=== PATIENT | male | born 1945 | race Caucasian/White ===

== ENCOUNTER 2020-08-24 16:16 | Inpatient (IN) ==
[2020-08-24] MEDS ORDERED: ACETAMINOPHEN 325 MG TABLET PO PRN (16:28)
[2020-08-24] MEDS: SODIUM CHLORIDE 0.9% 1,000 ML IV SCH (17:59)
[2020-08-24] MEDS: PIPERACILLIN/TAZOBACTAM 3,375 MG in SODIUM CHLORIDE 0.9% 100 ML IV SCH (17:59)
[2020-08-24] MEDS ORDERED: ENOXAPARIN 40 MG/0.4 ML SYRINGE SUBCUT SCH (21:00)
[2020-08-25] MEDS: SODIUM CHLORIDE 0.9% 1,000 ML IV SCH ×3 (01:38→17:38)
[2020-08-25] MEDS: PIPERACILLIN/TAZOBACTAM 3,375 MG in SODIUM CHLORIDE 0.9% 100 ML IV SCH ×3 (02:35→17:39)
[2020-08-25 05:49] LABS: Basophils % 0.1 % (0.0-0.8); Hematocrit 37.2 VOL% (42.0-52.0); Hemoglobin 12.8 GM/DL (14.0-18.0); Immature Granulocytes % 0.6 %; Immature Granulocytes Absolute 0.09 #; Lymphocytes # 0.8 10*3/uL (1.4-4.0); Lymphocytes % 5.1 % (21.2-54.2); Mean Corpuscular HGB Conc 34.4 GM/DL (32-36); Mean Corpuscular Volume 88.8 FL (87-102); Mean Platelet Volume 9.8 FL (9.6-12.0); Monocytes % 7.2 % (1.7-12.7); Platelet Count 126 T/CUMM (130-400); Red Blood Count 4.19 MC/CUMM (3.8-5.5); Red Cell Distribution Width 13.3 % (9.3-17.3); White Blood Count 15.2 T/CUMM (4-12)
[2020-08-25] MEDS: PANTOPRAZOLE 40 MG TABLET PO SCH (08:27)
[2020-08-25] MEDS ORDERED: ROCURONIUM 50 MG/5 ML VIAL IV ONE (13:15)
[2020-08-25] MEDS ORDERED: propofoL 200 MG/20 ML VIAL IV ONE (13:15)
[2020-08-25] MEDS ORDERED: SEVOFLURANE 1 UNIT/15 MINUTE INH ONE ×7 (13:15→15:27)
[2020-08-25] MEDS ORDERED: LIDOCAINE 2% 5 ML VIAL ONE (13:15)
[2020-08-25] MEDS ORDERED: MIDAZOLAM 2 MG/2 ML VIAL ONE (13:19)
[2020-08-25] MEDS ORDERED: fentaNYL 250 MCG/5 ML VIAL ONE (13:19)
[2020-08-25] MEDS ORDERED: SUCCINYLCHOLINE 200 MG/10 ML VIAL ONE (13:20)
[2020-08-25] MEDS ORDERED: PHENYLEPHRINE 1 MG/10 ML SYRINGE IV ONE (13:44)
[2020-08-25] MEDS ORDERED: LACTATED RINGERS 1,000 ML IV ONE ×2 (14:33→15:26)
[2020-08-25] MEDS ORDERED: GLYCOPYRROLATE 0.4 MG/2 ML VIAL ONE (15:09)
[2020-08-25] MEDS ORDERED: NEOSTIGMINE 10 MG/10 ML VIAL ONE (15:10)
[2020-08-25] MEDS ORDERED: DEXAMETHASONE 4 MG/1 ML VIAL ONE (15:10)
[2020-08-25] MEDS ORDERED: LIDOCAINE 1% 5 ML VIAL ONE (15:10)
[2020-08-25] MEDS ORDERED: ROPIVACAINE 0.5% 30 ML VIAL ONE (15:11)
[2020-08-25] MEDS ORDERED: ONDANSETRON 4 MG/2 ML VIAL IV PRN (16:26)
[2020-08-25] MEDS: ONDANSETRON 4 MG/2 ML VIAL IV PRN (16:28)
[2020-08-25] MEDS: HYDROmorphone 2 MG/1 ML VIAL IV PRN ×3 (16:30→21:11)
[2020-08-25 18:09] LABS: Bilirubin,Urine Negative (Negative); Blood, Urine Negative (Negative); Glucose,Urine (UA) Negative (Negative); Ketones,Urine 80 mg/dL (Negative); Mucus,Urine Occasional /LPF (Occasional); Nitrite,Urine Negative (Negative); Protein,Urine 30 MG/DL; RBC,Urine 4 /HPF (0-4); Urine Appearance CLEAR (Clear); Urine Color Yellow (Yellow); Urine Specific Gravity 1.025 (1.001-1.035); Urine Urobilinogen < 2.0 EU/DL (0.2-1.0); WBC,Urine 4 /HPF (0-6)
[2020-08-26] MEDS: PIPERACILLIN/TAZOBACTAM 3,375 MG in SODIUM CHLORIDE 0.9% 100 ML IV SCH ×4 (04:07→17:23)
[2020-08-26] MEDS: SODIUM CHLORIDE 0.9% 1,000 ML IV SCH ×3 (04:24→15:40)
[2020-08-26 05:04] LABS: Calcium 7.6 MG/DL (8.5-10.1); Osmolality,Calculated 284.4 MOS/KG (273-304)
[2020-08-26] MEDS: PANTOPRAZOLE 40 MG TABLET PO SCH (08:39)
[2020-08-26] MEDS: ASPIRIN EC 81 MG TABLET PO SCH (08:39)
[2020-08-26] MEDS: ONDANSETRON 4 MG/2 ML VIAL IV PRN (08:49)
[2020-08-26] MEDS: HYDROmorphone 2 MG/1 ML VIAL IV PRN ×3 (08:50→18:52)
[2020-08-27] MEDS: SODIUM CHLORIDE 0.9% 1,000 ML IV SCH ×3 (01:51→17:05)
[2020-08-27] MEDS: HYDROmorphone 2 MG/1 ML VIAL IV PRN ×3 (01:51→17:08)
[2020-08-27] MEDS: PIPERACILLIN/TAZOBACTAM 3,375 MG in SODIUM CHLORIDE 0.9% 100 ML IV SCH ×3 (01:51→17:08)
[2020-08-27 04:57] LABS: Basophils % 0.1 % (0.0-0.8); Eosinophils % 0.2 % (0.00-10.9); Hematocrit 33.7 VOL% (42.0-52.0); Hemoglobin 11.1 GM/DL (14.0-18.0); Immature Granulocytes % 0.4 %; Immature Granulocytes Absolute 0.05 #; Lymphocytes # 0.8 10*3/uL (1.4-4.0); Lymphocytes % 6.6 % (21.2-54.2); Mean Corpuscular HGB Conc 32.9 GM/DL (32-36); Mean Corpuscular Volume 90.1 FL (87-102); Mean Platelet Volume 10.2 FL (9.6-12.0); Monocytes % 8.6 % (1.7-12.7); Neutrophils % 84.1 % (38.7-73.9); Platelet Count 138 T/CUMM (130-400); Red Blood Count 3.74 MC/CUMM (3.8-5.5); Red Cell Distribution Width 13.3 % (9.3-17.3); White Blood Count 11.6 T/CUMM (4-12)
[2020-08-27 05:26] LABS: Calcium 7.8 MG/DL (8.5-10.1); Osmolality,Calculated 284.3 MOS/KG (273-304); Potassium 3.6 MMOL/L (3.5-5.1)
[2020-08-27] MEDS: PANTOPRAZOLE 40 MG TABLET PO SCH (08:56)
[2020-08-27] MEDS: ONDANSETRON 4 MG/2 ML VIAL IV PRN ×2 (09:36→17:06)
[2020-08-28] MEDS: PIPERACILLIN/TAZOBACTAM 3,375 MG in SODIUM CHLORIDE 0.9% 100 ML IV SCH ×3 (03:19→17:36)
[2020-08-28 05:50] LABS: Basophils % 0.4 % (0.0-0.8); Eosinophils # 0.1 10*3/uL (0.0-0.87); Eosinophils % 1.9 % (0.00-10.9); Hematocrit 30.8 VOL% (42.0-52.0); Hemoglobin 9.9 GM/DL (14.0-18.0); Immature Granulocytes % 0.4 %; Immature Granulocytes Absolute 0.03 #; Lymphocytes # 0.8 10*3/uL (1.4-4.0); Lymphocytes % 11.2 % (21.2-54.2); Mean Corpuscular HGB Conc 32.1 GM/DL (32-36); Mean Corpuscular Volume 90.9 FL (87-102); Mean Platelet Volume 10.2 FL (9.6-12.0); Monocytes % 10.1 % (1.7-12.7); Platelet Count 142 T/CUMM (130-400); Red Blood Count 3.39 MC/CUMM (3.8-5.5); Red Cell Distribution Width 13.5 % (9.3-17.3); White Blood Count 7.4 T/CUMM (4-12)
[2020-08-28 06:19] LABS: Albumin 2.1 G/DL (3.4-5.0); Bilirubin,Total 0.8 MG/DL (0.2-1.0); Calcium 7.9 MG/DL (8.5-10.1); Osmolality,Calculated 282.1 MOS/KG (273-304); Potassium 3.7 MMOL/L (3.5-5.1); Total Protein 5.4 G/DL (6.4-8.3)
[2020-08-28] MEDS: SODIUM CHLORIDE 0.9% 1,000 ML IV SCH ×2 (06:24→18:20)
[2020-08-28] MEDS: PANTOPRAZOLE 40 MG TABLET PO SCH (09:50)
[2020-08-28] MEDS: ASPIRIN EC 81 MG TABLET PO SCH (09:50)
[2020-08-28] MEDS: HYDROmorphone 2 MG/1 ML VIAL IV PRN (17:48)
[2020-08-29] MEDS: PIPERACILLIN/TAZOBACTAM 3,375 MG in SODIUM CHLORIDE 0.9% 100 ML IV SCH ×3 (02:09→17:26)
[2020-08-29] MEDS: SODIUM CHLORIDE 0.9% 1,000 ML IV SCH ×3 (02:10→22:52)
[2020-08-29] MEDS ORDERED: LIDOCAINE 2% 5 ML VIAL ONE (06:47)
[2020-08-29] MEDS ORDERED: DEXMEDETOMIDINE 200 MCG/2 ML VIAL ONE (06:47)
[2020-08-29] MEDS ORDERED: fentaNYL 100 MCG/2 ML VIAL ONE (06:47)
[2020-08-29] MEDS ORDERED: MIDAZOLAM 2 MG/2 ML VIAL ONE ×2 (06:47→07:09)
[2020-08-29] MEDS ORDERED: propofoL 200 MG/20 ML VIAL IV ONE (06:48)
[2020-08-29] MEDS ORDERED: LACTATED RINGERS 1,000 ML IV SCH (07:00)
[2020-08-29] MEDS ORDERED: GLYCOPYRROLATE 0.4 MG/2 ML VIAL ONE (07:08)
[2020-08-29] MEDS: PANTOPRAZOLE 40 MG TABLET PO SCH (09:14)
[2020-08-29] MEDS: HYDROmorphone 2 MG/1 ML VIAL IV PRN (14:32)
[2020-08-30] MEDS: PIPERACILLIN/TAZOBACTAM 3,375 MG in SODIUM CHLORIDE 0.9% 100 ML IV SCH ×2 (01:00→09:36)
[2020-08-30] MEDS: ASPIRIN EC 81 MG TABLET PO SCH (08:51)
[2020-08-30] MEDS: PANTOPRAZOLE 40 MG TABLET PO SCH (08:51)
[2020-08-30 11:52] VITALS: BP 140/63
[2020-08-30] MEDS: SODIUM CHLORIDE 0.9% 1,000 ML IV SCH (12:32)
== END 2020-08-30 12:54 | disposition home or self-care (01) | DRG 331 ==
LOC: N.TELEN 16:58
PROVIDERS: ADMIT Family Medicine; ATTEND Family Medicine

== ENCOUNTER 2020-11-05 18:47 | Inpatient (IN) ==
[2020-11-05] MEDS ORDERED: SODIUM CHLORIDE 0.9% 500 ML IV STA (19:09)
[2020-11-05] MEDS ORDERED: HYDROmorphone 2 MG/1 ML VIAL IV STA (19:09)
[2020-11-05] MEDS ORDERED: KETOROLAC 30 MG/1 ML VIAL IV STA (19:09)
[2020-11-05] MEDS ORDERED: ONDANSETRON 4 MG/2 ML VIAL IV STA (19:09)
[2020-11-05] MEDS ORDERED: PANTOPRAZOLE 40 MG VIAL IV STA (19:09)
[2020-11-05 19:18] LABS: Basophils # 0.1 10*3/uL (0.0-0.2); Basophils % 0.4 % (0.0-0.8); Eosinophils # 0.1 10*3/uL (0.0-0.87); Eosinophils % 0.6 % (0.00-10.9); Hematocrit 42.4 VOL% (42.0-52.0); Hemoglobin 13.7 GM/DL (14.0-18.0); Immature Granulocytes % 0.5 %; Immature Granulocytes Absolute 0.06 #; Lymphocytes % 8.1 % (21.2-54.2); Mean Corpuscular HGB Conc 32.3 GM/DL (32-36); Mean Corpuscular Volume 88.7 FL (87-102); Mean Platelet Volume 9.8 FL (9.6-12.0); Monocytes % 5.7 % (1.7-12.7); Neutrophils % 84.7 % (38.7-73.9); Platelet Count 188 T/CUMM (130-400); Red Blood Count 4.78 MC/CUMM (3.8-5.5); White Blood Count 12.4 T/CUMM (4-12)
[2020-11-05 19:38] LABS: Bilirubin,Total 0.4 MG/DL (0.2-1.0); Calcium 9.2 MG/DL (8.5-10.1); Osmolality,Calculated 285.1 MOS/KG (273-304); Potassium 3.7 MMOL/L (3.5-5.1); Total Protein 7.2 G/DL (6.4-8.2)
[2020-11-05] MEDS ORDERED: PIPERACILLIN/TAZOBACTAM 3,375 MG in SODIUM CHLORIDE 0.9% 100 ML IV STA (19:47)
[2020-11-05 20:15] LABS: Bilirubin,Urine Negative (Negative); Blood, Urine Negative (Negative); Glucose,Urine (UA) Negative (Negative); Ketones,Urine 5 mg/dL (Negative); Mucus,Urine Occasional /LPF (Occasional); Nitrite,Urine Negative (Negative); Protein,Urine Negative; Urine Appearance CLEAR (Clear); Urine Color Yellow (Yellow); Urine Specific Gravity 1.011 (1.001-1.035); Urine Urobilinogen < 2.0 EU/DL (0.2-1.0)
[2020-11-05] MEDS ORDERED: ACETAMINOPHEN 325 MG TABLET PO PRN (21:43)
[2020-11-05] MEDS ORDERED: HYDROmorphone 2 MG/1 ML VIAL IV PRN (21:43)
[2020-11-05] MEDS ORDERED: ONDANSETRON 4 MG/2 ML VIAL IV PRN (21:43)
[2020-11-05] MEDS: SODIUM CHLORIDE 0.9% 1,000 ML IV SCH (22:16)
[2020-11-06 05:56] LABS: Basophils % 0.2 % (0.0-0.8); Eosinophils # 0.1 10*3/uL (0.0-0.87); Eosinophils % 1.4 % (0.00-10.9); Hematocrit 35.7 VOL% (42.0-52.0); Immature Granulocytes % 0.3 %; Immature Granulocytes Absolute 0.03 #; Lymphocytes # 1.1 10*3/uL (1.4-4.0); Lymphocytes % 11.8 % (21.2-54.2); Mean Corpuscular HGB Conc 31.7 GM/DL (32-36); Mean Corpuscular Volume 90.2 FL (87-102); Mean Platelet Volume 10.2 FL (9.6-12.0); Monocytes % 8.5 % (1.7-12.7); Neutrophils % 77.8 % (38.7-73.9); Platelet Count 152 T/CUMM (130-400); Red Blood Count 3.96 MC/CUMM (3.8-5.5)
[2020-11-06 05:59] LABS: Hemoglobin 11.3 GM/DL (14.0-18.0)
[2020-11-06] MEDS: PIPERACILLIN/TAZOBACTAM 3,375 MG in SODIUM CHLORIDE 0.9% 100 ML IV SCH ×3 (06:01→21:09)
[2020-11-06 06:09] LABS: Albumin 2.9 G/DL (3.4-5.0); Bilirubin,Total 1.1 MG/DL (0.2-1.0); Calcium 7.8 MG/DL (8.5-10.1); Osmolality,Calculated 288.8 MOS/KG (273-304); Potassium 3.9 MMOL/L (3.5-5.1); Total Protein 5.4 G/DL (6.4-8.2)
[2020-11-06] MEDS: ZINC GLUCONATE 50 MG TABLET PO SCH ×2 (09:33→21:08)
[2020-11-06] MEDS: PANTOPRAZOLE 40 MG VIAL IV SCH (09:33)
[2020-11-06] MEDS ORDERED: MELOXICAM 7.5 MG TABLET PO SCH (10:00)
[2020-11-06] MEDS ORDERED: ASPIRIN CHEW 81 MG TABLET PO SCH (10:00)
[2020-11-06] MEDS: SODIUM CHLORIDE 0.9% 1,000 ML IV SCH (12:44)
[2020-11-06] MEDS ORDERED: ENOXAPARIN 40 MG/0.4 ML SYRINGE SUBCUT SCH (13:49)
[2020-11-07] MEDS: PIPERACILLIN/TAZOBACTAM 3,375 MG in SODIUM CHLORIDE 0.9% 100 ML IV SCH (04:28)
[2020-11-07] MEDS: SODIUM CHLORIDE 0.9% 1,000 ML IV SCH ×2 (04:29→09:36)
[2020-11-07 07:52] VITALS: BP 117/54
[2020-11-07] MEDS: PANTOPRAZOLE 40 MG VIAL IV SCH (08:32)
[2020-11-07] MEDS: ZINC GLUCONATE 50 MG TABLET PO SCH (08:33)
== END 2020-11-07 10:00 | disposition home or self-care (01) | DRG 390 ==
LOC: N.ED 18:47 → N.EDINP 20:46 → N.3E 21:09
PROVIDERS: ADMIT Surgery; ATTEND Surgery